=== PATIENT | male | born 1950 | race Caucasian/White ===

== ENCOUNTER 2022-10-10 14:17 | Emergency (ER) | payer MEDICARE, MEDICAID, SELFPAY ==
--- NOTE | ~2022-10-10 | US_ITS ---
EXAMINATION: US VENOUS ULTRASOUND WITH DOPPLER LOWER EXTREMITY, BILATERAL CLINICAL INFORMATION: Pulmonary emboli COMPARISON: None TECHNIQUE: Ultrasound of the deep veins is performed from the hip to the calf with compression sonography and color and pulse Doppler assessment. Spectral analysis with color-flow imaging is performed. FINDINGS: RIGHT: There is normal venous compression and respiratory variation and augmented flow. The visualized common femoral vein, superficial femoral vein, profunda femoral vein, popliteal vein, and the trifurcation region shows no evidence of deep venous thrombosis. There is no significant popliteal fossa cyst. LEFT: There is normal venous compression and respiratory variation and augmented flow. The visualized common femoral vein, superficial femoral vein, profunda femoral vein, popliteal vein, and the trifurcation region shows no evidence of deep venous thrombosis. There is no significant popliteal fossa cyst. If the patient's symptoms persist, followup ultrasound in 5 days 7 days might be of value to exclude proximal propagation from a non-visualized calf vein. US/US venous duplex LE BI IMPRESSION: No DVT demonstrated in either lower extremity.
--- NOTE | ~2022-10-10 | XR_ITS ---
EXAMINATION: XR CHEST, 2 VIEWS CLINICAL INFORMATION: Chest pain. COMPARISON: 05/31/2018 TECHNIQUE: PA and lateral views of the chest were obtained. FINDINGS: Lungs are hyperexpanded though clear. Blunting of the left lateral costophrenic sulcus is unchanged as compared to prior and likely due to chronic pleural parenchymal scarring. Pleural effusion is less likely. No consolidation or pneumothorax. Cardiac and mediastinal contours are normal. Pulmonary vasculature is unremarkable. Trachea is midline. Mild degenerative disc disease in the thoracic spine. XR/XR chest 2V IMPRESSION: No acute pulmonary findings. Chronic pleural parenchymal scarring at the left lateral costophrenic sulcus.
--- NOTE | ~2022-10-10 | CT_ITS ---
EXAMINATION: CT ANGIOGRAM OF THE CHEST WITH AND WITHOUT CONTRAST (CT PULMONARY ANGIOGRAM FOR PE) CLINICAL INFORMATION: Reason for Exam CP, elevated D-dimer COMPARISON: None TECHNIQUE: Prior to contrast administration, noncontrast localization images were obtained. Subsequently, multidetector volumetric imaging was performed from the thoracic inlet to below the diaphragms following the administration of 65 mL Omnipaque 350 intravenous contrast. No contrast reaction reported Sagittal, coronal, and MIP oblique sagittal reformatted images were obtained on the CT workstation, uploaded to PACS, and reviewed. This CT examination was performed using dose optimization techniques as appropriate, variously including the following: *Automated exposure control *Adjustment of mA and/or kV according to patient size (this includes techniques or standardized protocols for targeted exams where dose is matched to indication/reason for exam; i.e. extremities or head) *Use of iterative reconstruction technique Total exam dose-length product 242 mGy-cm FINDINGS: QUALITY OF STUDY/CONTRAST BOLUS: Satisfactory. PULMONARY ARTERIES: There is a distal segmental/subsegmental pulmonary embolus in the anterior segment left upper lobe. No additional segmental or central pulmonary emboli. Nondilated central pulmonary trunk. THORACIC AORTA: No aneurysm or dissection. LUNG: No airspace consolidation. Curvilinear pleural parenchymal scarring in the left lung base. Small calcified granulomas in the left upper and left lower lobes. No suspicious appearing pulmonary nodules. Central airways are clear. PLEURA: Left basilar pleural thickening. No pleural effusion or pneumothorax. MEDIASTINUM: Normal heart size. No pericardial effusion. No appreciable coronary artery vascular calcifications. No hilar or mediastinal lymphadenopathy. No evidence of septal bowing or right heart strain. CORONARY ARTERY CALCIFICATION: None visualized on this study. CHEST WALL/AXILLA: No axillary or internal mammary lymphadenopathy. OSSEOUS STRUCTURES: No acute or suspicious osseous abnormality. Mild multilevel degenerative disc disease in the lower cervical and thoracic spine. UPPER ABDOMEN: Unremarkable. No reflux of contrast into the hepatic veins to suggest elevated right heart pressures. CT/CT angio chest PE protocol IMPRESSION: 1. Small distal segmental/subsegmental pulmonary embolus in the anterior segment left upper lobe. No additional pulmonary emboli. 2. No airspace consolidation or effusions. VTE: positive This critical result was discussed with Dr. Cooper at 6:49 PM on 10/10/2022 and it was ascertained that the content and urgency of the report was understood at the time of direct communication.
[2022-10-10 14:50] VITALS: BP 143/101; PULSE 126; RESP 18; TEMP 36.8; O2SAT 97; BMI 19.5
--- NOTE | 2022-10-10 14:51 | ED.CHESTPAIN ---
HPI - Chest Pain General Chief Complaint: Chest Pain <OMAR Newell - Last Filed: 10/10/22 14:59> Stated Complaint: CP, chest pressure x 3 days <OMAR Newell - Last Filed: 10/10/22 14:59> Time Seen by Provider: 10/10/22 15:31 <OMAR Newell - Last Filed: 10/10/22 14:59> Source: patient and family <Luzma Cooper MD - Last Filed: 10/10/22 19:55> Mode of arrival: ambulatory <Luzma Cooper MD - Last Filed: 10/10/22 19:55> Limitations: no limitations <Luzma Cooper MD - Last Filed: 10/10/22 19:55> History of Present Illness HPI narrative: 72-year-old male came in for evaluation of chest pain. Mid chest constant pain localized to the mid chest with no radiation, started 3 days ago pain is constant and moderate 5/10 described it as pressure pain and sharp pain to the mid chest, no SOB a cessation, no fever, no chills, been coughing clear phlegm for the past 3-4 weeks, no sick contacts, recent travel. Patient recently diagnosed with prostate cancer patient slightly feel sad and depressed about it with no SI or HI or hallucination. Patient declined recent travel, no lower extremity swelling or tenderness. <Luzma Cooper MD - Last Filed: 10/10/22 19:55> Related Data Home Medications: Previous Rx's Medication Instructions Recorded apixaban 5 mg (74 tabs) tablets in 5 mg PO BID #74 ea 10/10/22 a dose pack (Eliquis DVT-PE Treat 30D Start) <OMAR Newell - Last Filed: 10/10/22 14:59> Allergies/Adverse Reactions: Allergies Allergy/AdvReac Type Severity Reaction Status Date / Time bee pollen [Bee Stings] Allergy Unknown ANAPHYLAXIS Verified 10/10/22 14:54 <OMAR Newell - Last Filed: 10/10/22 14:59> Review of Systems Review of Systems: All other systems are reviewed and are negative Constitutional: Reports as per HPI and Reports no additional constitutional complaints Eyes: Reports as per HPI and Reports no additional eye complaints Reports system reviewed and no additional complaints, except as documented Cardiovascular: Reports as per HPI and Reports no additional cardiovascular complaints Respiratory: Reports as per HPI and Reports no additional respiratory complaints Gastrointestinal: Reports as per HPI and Reports no additional gastrointestinal complaints Genitourinary: Reports no additional female genitourinary complaints Musculoskeletal: Reports no additional musculoskeletal complaints Skin/Breast: Reports system reviewed and no additional complaints, except as docu Psychiatric: Reports no additional psychiatric complaints Endocrine: Reports no additional endocrine complaints Hematologic/Lymphatic: Reports no additional hematologic/lymphatic complaints Allergic/Immunologic: Reports no additional allergic/immunologic complaints Reports system reviewed and no additional complaints, except as documented and Reports Abnormal speech present <Luzma Cooper MD - Last Filed: 10/10/22 19:55> [facility] Social History Social History: Social History Smoked in Last 30 Days: No Advance Directives: No Advance Directives Information Provided: No <OMAR Newell - Last Filed: 10/10/22 14:59> Physical Exam Vital Signs: Vital Signs: Last Vital Signs Temp 98.4 F 10/10/22 16:53 Pulse 84 10/10/22 16:53 Resp 21 H 10/10/22 16:53 BP 144/89 H 10/10/22 16:53 Pulse Ox 98 10/10/22 16:53 O2 Del Method 10/10/22 16:53 BMI result Body Mass Index 19.5 <OMAR Newell - Last Filed: 10/10/22 14:59> Vital Signs: Last Vital Signs Temp 98.4 F 10/10/22 16:53 Pulse 84 10/10/22 16:53 Resp 21 H 10/10/22 16:53 BP 144/89 H 10/10/22 16:53 Pulse Ox 98 10/10/22 16:53 O2 Del Method 10/10/22 16:53 BMI result Body Mass Index 19.5 Vital signs have been reviewed as appeared to be correct. Blood pressure elevated. Tachycardia. Respiration rate normal. Temperature normal. Oxygen saturation normal. <Luzma Cooper MD - Last Filed: 10/10/22 19:55> Appearance: Alert. Oriented X3. No acute distress. Head: Normal external exam. Normocephalic. Atraumatic. No Davison signs noted. No raccoon eyes noted Eyes: PERRLA. EOMI. Conjunctiva and sclera normal. Eyelids normal. ENT: TM's Normal. Pharynx normal. Uvula midline. Moist mucous membranes. No trismus noted. No drooling noted. No muffled voice noted. Neck: Normal inspection. Neck supple. FROM. No adenopathy. Thyroid Normal. No meningeal signs. No neck mass noted. CVS: Normal heart rate and rhythm. Heart sound normal. No murmurs noted. Pulses normal throughout. Respiratory: No respiratory distress. Painless inspiration. Breath sounds normal. No wheezes/rales/rhonchi noted. Chest nontender. No accessory muscle usage noted or decreased air movement noted. Abdomen: Soft and nontender. Bowel sounds normal in all 4 quadrants. No distention noted. No organomegaly noted. No visible injury noted. Back: No CVA tenderness. Full range of motion noted. Skin: Skin warm and dry. Normal skin color. Normal skin turgor. No rashes/lesions/lacerations noted. Extremities: No lower extremity edema. Extremities exhibit normal range of motion. Extremities nontender. Neuro: Oriented X 3. Cranial nerve exam: II-XII are grossly intact No motor deficit. No sensory deficit. Reflexes normal. <Luzma Cooper MD - Last Filed: 10/10/22 19:55> Course Course Course Narrative: RME - 72 yo male with history of recently diagnosed prostate cancer who presents to the ER for evaluation of central, nonradiating constant chest pain and pressure for the last 3 days that started when he was doing nothing. No SOB, diaphoresis, admits to mild nausea and coughing w/ phlegm for the last 1 week. Tachy to 120-130s, satting well. Will get labs, CXR, EKG, coags and swabs. <OMAR Newell - Last Filed: 10/10/22 14:59> Reevaluation(s) Reevaluation #1: Recently diagnosed with prostate cancer, otherwise no recent travel or prolonged immobilization, no lower extremity swelling or tenderness, CTA showed patient has small pulmonary segmental embolism to the right lung. Patient vital sign is stable, lower extremities ultrasound shows no DVT, no hypoxia, patient declined hospitalization and rather to be treated as an outpatient. <Luzma Cooper MD - Last Filed: 10/10/22 19:55> Time: 19:51 <Luzma Cooper MD - Last Filed: 10/10/22 19:55> Medications Administered Discontinued Medications Generic Name Dose Route Start Last Admin Trade Name Freq PRN Reason Stop Dose Admin Iohexol 100 ml 10/10/22 17:45 10/10/22 17:45 Iohexol 350 Mg/Ml 100 Ml Infus..Btl IV 10/10/22 17:46 65 ml ONCE ONE Administration Ondansetron HCl 4 mg 10/10/22 18:22 10/10/22 18:30 Ondansetron Hcl 4 Mg/2 Ml Vial IVPUSH 10/10/22 18:23 4 mg ONCE ONE Administration <OMAR Newell - Last Filed: 10/10/22 14:59> Medications Administered Discontinued Medications Generic Name Dose Route Start Last Admin Trade Name Freq PRN Reason Stop Dose Admin Iohexol 100 ml 10/10/22 17:45 10/10/22 17:45 Iohexol 350 Mg/Ml 100 Ml Infus..Btl IV 10/10/22 17:46 65 ml ONCE ONE Administration Ondansetron HCl 4 mg 10/10/22 18:22 10/10/22 18:30 Ondansetron Hcl 4 Mg/2 Ml Vial IVPUSH 10/10/22 18:23 4 mg ONCE ONE Administration <Luzma Cooper MD - Last Filed: 10/10/22 19:55> Medical Decision Making Differential Diagnosis Differential Diagnoses: The differential diagnosis associated with the presentation includes (ACS, pneumonia, pneumothorax, pulmonary embolism, aortic dissection.) <Luzma Cooper MD - Last Filed: 10/10/22 19:55> Lab Data MDM Lab Attestation statement: I reviewed the patient's lab results. <Luzma Cooper MD - Last Filed: 10/10/22 19:55> Result Diagrams: 10/10/22 15:44 10/10/22 15:44 <OMAR Newell - Last Filed: 10/10/22 14:59> Labs: Lab Results 10/10/22 10/10/22 10/10/22 Range/Units 15:40 15:44 15:44 WBC 7.3 (4.8-10.8) X10*3/uL RBC 4.07 L (4.60-5.80) X10*6/uL Hgb 13.1 L (14.0-18.0) g/dl Hct 38.8 L (42.0-52.0) % MCV 95.3 (80.0-98.0) fL MCH 32.2 (27.0-33.0) pg MCHC 33.8 (31.0-36.0) g/dl RDW 12.3 (11.0-16.0) % Plt Count 254 (160-400) X10*3/uL MPV 9.7 (9.4-12.4) fL Immature Gran % (Auto) 0.4 (0.0-0.4) % Neut % (Auto) 71.5 (45-73) % Lymph % (Auto) 17.9 L (20-40) % [place] % (Auto) 6.7 (2-11) % Eos % (Auto) 2.7 (0-4) % Baso % (Auto) 0.8 (0-2) % Lymph # (Auto) 1.3 (1.2-4.9) X10*3/uL [place] # (Auto) 0.5 (0.1-1.2) X10*3/uL Eos # (Auto) 0.2 (0.0-0.4) X10*3/uL Baso # (Auto) 0.1 (0.0-0.2) X10*3/uL Abs Immat Gran (auto) 0.03 (0.00-0.03) X10*3/uL Absolute Neuts (auto) 5.2 (2.0-8.3) x10*3/uL Absolute Nucleated RBC 0.000 (0.0-0.012) X10*3/uL Nucleated RBC % (auto) 0.0 (0.0-0.2) /100WBC PT (10.0-13.1) SEC INR (0.9-1.1) APTT (26.0-36.4) SEC D-Dimer High Sensitivty 284 NG/ML Sodium 138 (135-145) mmol/L Potassium 4.3 (3.3-5.1) mmol/L Chloride 104 (96-108) mmol/L Carbon Dioxide 26 (22-29) mmol/L Anion Gap 12 (12-20) BUN 16 (9-16) mg/dL Creatinine 0.84 (0.5-1.4) mg/dL Estim Creat Clear Calc 72.4 Estimated GFR > 60 Random Glucose 111 (60-115) mg/dL Calcium 9.2 (8.4-10.2) mg/dL Magnesium 2.1 (1.6-2.6) mg/dL Total Bilirubin 0.4 (0.0-1.0) mg/dL Direct Bilirubin < 0.2 (0.0-0.5) mg/dL AST 27 (5-37) U/L ALT 19 (0-40) U/L Alkaline Phosphatase 74 (39-117) U/L Troponin I High Sens (<3.5-35.0) ng/L B-Natriuretic Peptide (<100) pg/mL Total Protein 6.2 L (6.5-8.0) g/dL Albumin 3.9 (3.5-5.0) g/dL Urine Color Urine Appearance Urine pH (5.0-9.0) Ur Specific [place] (1.005-1.025) Urine Protein (Neg-Trace) mg/dL Urine Glucose (UA) (Negative) mg/dL Urine Ketones (Negative) mg/dL Urine Blood (Negative) Urine Nitrite (Negative) Ur Leukocyte Esterase (Negative) COVID-19 (DOV) (Negative) COVID-19 Clin Com Influenza Type A (TRINITY) (Negative) Influenza Type B (TRINITY) (Negative) Influenza A & B Note 10/10/22 10/10/22 10/10/22 Range/Units 15:44 15:44 15:44 WBC (4.8-10.8) X10*3/uL RBC (4.60-5.80) X10*6/uL Hgb (14.0-18.0) g/dl Hct (42.0-52.0) % MCV (80.0-98.0) fL MCH (27.0-33.0) pg MCHC (31.0-36.0) g/dl RDW (11.0-16.0) % Plt Count (160-400) X10*3/uL MPV (9.4-12.4) fL Immature Gran % (Auto) (0.0-0.4) % Neut % (Auto) (45-73) % Lymph % (Auto) (20-40) % [place] % (Auto) (2-11) % Eos % (Auto) (0-4) % Baso % (Auto) (0-2) % Lymph # (Auto) (1.2-4.9) X10*3/uL [place] # (Auto) (0.1-1.2) X10*3/uL Eos # (Auto) (0.0-0.4) X10*3/uL Baso # (Auto) (0.0-0.2) X10*3/uL Abs Immat Gran (auto) (0.00-0.03) X10*3/uL Absolute Neuts (auto) (2.0-8.3) x10*3/uL Absolute Nucleated RBC (0.0-0.012) X10*3/uL Nucleated RBC % (auto) (0.0-0.2) /100WBC PT 11.6 (10.0-13.1) SEC INR 1.0 (0.9-1.1) APTT 31.5 (26.0-36.4) SEC D-Dimer High Sensitivty NG/ML Sodium (135-145) mmol/L Potassium (3.3-5.1) mmol/L Chloride (96-108) mmol/L Carbon Dioxide (22-29) mmol/L Anion Gap (12-20) BUN (9-16) mg/dL Creatinine (0.5-1.4) mg/dL Estim Creat Clear Calc Estimated GFR Random Glucose (60-115) mg/dL Calcium (8.4-10.2) mg/dL Magnesium (1.6-2.6) mg/dL Total Bilirubin (0.0-1.0) mg/dL Direct Bilirubin (0.0-0.5) mg/dL AST (5-37) U/L ALT (0-40) U/L Alkaline Phosphatase (39-117) U/L Troponin I High Sens 5.2 (<3.5-35.0) ng/L B-Natriuretic Peptide (<100) pg/mL Total Protein (6.5-8.0) g/dL Albumin (3.5-5.0) g/dL Urine Color Urine Appearance Urine pH (5.0-9.0) Ur Specific [place] (1.005-1.025) Urine Protein (Neg-Trace) mg/dL Urine Glucose (UA) (Negative) mg/dL Urine Ketones (Negative) mg/dL Urine Blood (Negative) Urine Nitrite (Negative) Ur Leukocyte Esterase (Negative) COVID-19 (DOV) Negative (Negative) COVID-19 Clin Com See Note Influenza Type A (TRINITY) (Negative) Influenza Type B (TRINITY) (Negative) Influenza A & B Note 10/10/22 10/10/22 10/10/22 Range/Units 15:44 15:44 16:57 WBC (4.8-10.8) X10*3/uL RBC (4.60-5.80) X10*6/uL Hgb (14.0-18.0) g/dl Hct (42.0-52.0) % MCV (80.0-98.0) fL MCH (27.0-33.0) pg MCHC (31.0-36.0) g/dl RDW (11.0-16.0) % Plt Count (160-400) X10*3/uL MPV (9.4-12.4) fL Immature Gran % (Auto) (0.0-0.4) % Neut % (Auto) (45-73) % Lymph % (Auto) (20-40) % [place] % (Auto) (2-11) % Eos % (Auto) (0-4) % Baso % (Auto) (0-2) % Lymph # (Auto) (1.2-4.9) X10*3/uL [place] # (Auto) (0.1-1.2) X10*3/uL Eos # (Auto) (0.0-0.4) X10*3/uL Baso # (Auto) (0.0-0.2) X10*3/uL Abs Immat Gran (auto) (0.00-0.03) X10*3/uL Absolute Neuts (auto) (2.0-8.3) x10*3/uL Absolute Nucleated RBC (0.0-0.012) X10*3/uL Nucleated RBC % (auto) (0.0-0.2) /100WBC PT (10.0-13.1) SEC INR (0.9-1.1) APTT (26.0-36.4) SEC D-Dimer High Sensitivty NG/ML Sodium (135-145) mmol/L Potassium (3.3-5.1) mmol/L Chloride (96-108) mmol/L Carbon Dioxide (22-29) mmol/L Anion Gap (12-20) BUN (9-16) mg/dL Creatinine (0.5-1.4) mg/dL Estim Creat Clear Calc Estimated GFR Random Glucose (60-115) mg/dL Calcium (8.4-10.2) mg/dL Magnesium (1.6-2.6) mg/dL Total Bilirubin (0.0-1.0) mg/dL Direct Bilirubin (0.0-0.5) mg/dL AST (5-37) U/L ALT (0-40) U/L Alkaline Phosphatase (39-117) U/L Troponin I High Sens (<3.5-35.0) ng/L B-Natriuretic Peptide 50 (<100) pg/mL Total Protein (6.5-8.0) g/dL Albumin (3.5-5.0) g/dL Urine Color Yellow Urine Appearance Clear Urine pH 6.0 (5.0-9.0) Ur Specific [place] <= 1.005 (1.005-1.025) Urine Protein Negative (Neg-Trace) mg/dL Urine Glucose (UA) Negative (Negative) mg/dL Urine Ketones Negative (Negative) mg/dL Urine Blood Negative (Negative) Urine Nitrite Negative (Negative) Ur Leukocyte Esterase Negative (Negative) COVID-19 (DOV) (Negative) COVID-19 Clin Com Influenza Type A (TRINITY) Negative (Negative) Influenza Type B (TRINITY) Negative (Negative) Influenza A & B Note See Note <OMAR Newell - Last Filed: 10/10/22 14:59> Lab Results 10/10/22 10/10/22 10/10/22 Range/Units 15:40 15:44 15:44 WBC 7.3 (4.8-10.8) X10*3/uL RBC 4.07 L (4.60-5.80) X10*6/uL Hgb 13.1 L (14.0-18.0) g/dl Hct 38.8 L (42.0-52.0) % MCV 95.3 (80.0-98.0) fL MCH 32.2 (27.0-33.0) pg MCHC 33.8 (31.0-36.0) g/dl RDW 12.3 (11.0-16.0) % Plt Count 254 (160-400) X10*3/uL MPV 9.7 (9.4-12.4) fL Immature Gran % (Auto) 0.4 (0.0-0.4) % Neut % (Auto) 71.5 (45-73) % Lymph % (Auto) 17.9 L (20-40) % [place] % (Auto) 6.7 (2-11) % Eos % (Auto) 2.7 (0-4) % Baso % (Auto) 0.8 (0-2) % Lymph # (Auto) 1.3 (1.2-4.9) X10*3/uL [place] # (Auto) 0.5 (0.1-1.2) X10*3/uL Eos # (Auto) 0.2 (0.0-0.4) X10*3/uL Baso # (Auto) 0.1 (0.0-0.2) X10*3/uL Abs Immat Gran (auto) 0.03 (0.00-0.03) X10*3/uL Absolute Neuts (auto) 5.2 (2.0-8.3) x10*3/uL Absolute Nucleated RBC 0.000 (0.0-0.012) X10*3/uL Nucleated RBC % (auto) 0.0 (0.0-0.2) /100WBC PT (10.0-13.1) SEC INR (0.9-1.1) APTT (26.0-36.4) SEC D-Dimer High Sensitivty 284 NG/ML Sodium 138 (135-145) mmol/L Potassium 4.3 (3.3-5.1) mmol/L Chloride 104 (96-108) mmol/L Carbon Dioxide 26 (22-29) mmol/L Anion Gap 12 (12-20) BUN 16 (9-16) mg/dL Creatinine 0.84 (0.5-1.4) mg/dL Estim Creat Clear Calc 72.4 Estimated GFR > 60 Random Glucose 111 (60-115) mg/dL Calcium 9.2 (8.4-10.2) mg/dL Magnesium 2.1 (1.6-2.6) mg/dL Total Bilirubin 0.4 (0.0-1.0) mg/dL Direct Bilirubin < 0.2 (0.0-0.5) mg/dL AST 27 (5-37) U/L ALT 19 (0-40) U/L Alkaline Phosphatase 74 (39-117) U/L Troponin I High Sens (<3.5-35.0) ng/L B-Natriuretic Peptide (<100) pg/mL Total Protein 6.2 L (6.5-8.0) g/dL Albumin 3.9 (3.5-5.0) g/dL Urine Color Urine Appearance Urine pH (5.0-9.0) Ur Specific [place] (1.005-1.025) Urine Protein (Neg-Trace) mg/dL Urine Glucose (UA) (Negative) mg/dL Urine Ketones (Negative) mg/dL Urine Blood (Negative) Urine Nitrite (Negative) Ur Leukocyte Esterase (Negative) COVID-19 (DOV) (Negative) COVID-19 Clin Com Influenza Type A (TRINITY) (Negative) Influenza Type B (TRINITY) (Negative) Influenza A & B Note 10/10/22 10/10/22 10/10/22 Range/Units 15:44 15:44 15:44 WBC (4.8-10.8) X10*3/uL RBC (4.60-5.80) X10*6/uL Hgb (14.0-18.0) g/dl Hct (42.0-52.0) % MCV (80.0-98.0) fL MCH (27.0-33.0) pg MCHC (31.0-36.0) g/dl RDW (11.0-16.0) % Plt Count (160-400) X10*3/uL MPV (9.4-12.4) fL Immature Gran % (Auto) (0.0-0.4) % Neut % (Auto) (45-73) % Lymph % (Auto) (20-40) % [place] % (Auto) (2-11) % Eos % (Auto) (0-4) % Baso % (Auto) (0-2) % Lymph # (Auto) (1.2-4.9) X10*3/uL [place] # (Auto) (0.1-1.2) X10*3/uL Eos # (Auto) (0.0-0.4) X10*3/uL Baso # (Auto) (0.0-0.2) X10*3/uL Abs Immat Gran (auto) (0.00-0.03) X10*3/uL Absolute Neuts (auto) (2.0-8.3) x10*3/uL Absolute Nucleated RBC (0.0-0.012) X10*3/uL Nucleated RBC % (auto) (0.0-0.2) /100WBC PT 11.6 (10.0-13.1) SEC INR 1.0 (0.9-1.1) APTT 31.5 (26.0-36.4) SEC D-Dimer High Sensitivty NG/ML Sodium (135-145) mmol/L Potassium (3.3-5.1) mmol/L Chloride (96-108) mmol/L Carbon Dioxide (22-29) mmol/L Anion Gap (12-20) BUN (9-16) mg/dL Creatinine (0.5-1.4) mg/dL Estim Creat Clear Calc Estimated GFR Random Glucose (60-115) mg/dL Calcium (8.4-10.2) mg/dL Magnesium (1.6-2.6) mg/dL Total Bilirubin (0.0-1.0) mg/dL Direct Bilirubin (0.0-0.5) mg/dL AST (5-37) U/L ALT (0-40) U/L Alkaline Phosphatase (39-117) U/L Troponin I High Sens 5.2 (<3.5-35.0) ng/L B-Natriuretic Peptide (<100) pg/mL Total Protein (6.5-8.0) g/dL Albumin (3.5-5.0) g/dL Urine Color Urine Appearance Urine pH (5.0-9.0) Ur Specific [place] (1.005-1.025) Urine Protein (Neg-Trace) mg/dL Urine Glucose (UA) (Negative) mg/dL Urine Ketones (Negative) mg/dL Urine Blood (Negative) Urine Nitrite (Negative) Ur Leukocyte Esterase (Negative) COVID-19 (DOV) Negative (Negative) COVID-19 Clin Com See Note Influenza Type A (TRINITY) (Negative) Influenza Type B (TRINITY) (Negative) Influenza A & B Note 10/10/22 10/10/22 10/10/22 Range/Units 15:44 15:44 16:57 WBC (4.8-10.8) X10*3/uL RBC (4.60-5.80) X10*6/uL Hgb (14.0-18.0) g/dl Hct (42.0-52.0) % MCV (80.0-98.0) fL MCH (27.0-33.0) pg MCHC (31.0-36.0) g/dl RDW (11.0-16.0) % Plt Count (160-400) X10*3/uL MPV (9.4-12.4) fL Immature Gran % (Auto) (0.0-0.4) % Neut % (Auto) (45-73) % Lymph % (Auto) (20-40) % [place] % (Auto) (2-11) % Eos % (Auto) (0-4) % Baso % (Auto) (0-2) % Lymph # (Auto) (1.2-4.9) X10*3/uL [place] # (Auto) (0.1-1.2) X10*3/uL Eos # (Auto) (0.0-0.4) X10*3/uL Baso # (Auto) (0.0-0.2) X10*3/uL Abs Immat Gran (auto) (0.00-0.03) X10*3/uL Absolute Neuts (auto) (2.0-8.3) x10*3/uL Absolute Nucleated RBC (0.0-0.012) X10*3/uL Nucleated RBC % (auto) (0.0-0.2) /100WBC PT (10.0-13.1) SEC INR (0.9-1.1) APTT (26.0-36.4) SEC D-Dimer High Sensitivty NG/ML Sodium (135-145) mmol/L Potassium (3.3-5.1) mmol/L Chloride (96-108) mmol/L Carbon Dioxide (22-29) mmol/L Anion Gap (12-20) BUN (9-16) mg/dL Creatinine (0.5-1.4) mg/dL Estim Creat Clear Calc Estimated GFR Random Glucose (60-115) mg/dL Calcium (8.4-10.2) mg/dL Magnesium (1.6-2.6) mg/dL Total Bilirubin (0.0-1.0) mg/dL Direct Bilirubin (0.0-0.5) mg/dL AST (5-37) U/L ALT (0-40) U/L Alkaline Phosphatase (39-117) U/L Troponin I High Sens (<3.5-35.0) ng/L B-Natriuretic Peptide 50 (<100) pg/mL Total Protein (6.5-8.0) g/dL Albumin (3.5-5.0) g/dL Urine Color Yellow Urine Appearance Clear Urine pH 6.0 (5.0-9.0) Ur Specific [place] <= 1.005 (1.005-1.025) Urine Protein Negative (Neg-Trace) mg/dL Urine Glucose (UA) Negative (Negative) mg/dL Urine Ketones Negative (Negative) mg/dL Urine Blood Negative (Negative) Urine Nitrite Negative (Negative) Ur Leukocyte Esterase Negative (Negative) COVID-19 (DOV) (Negative) COVID-19 Clin Com Influenza Type A (TRINITY) Negative (Negative) Influenza Type B (TRINITY) Negative (Negative) Influenza A & B Note See Note <Luzma Cooper MD - Last Filed: 10/10/22 19:55> Independent Interpretation I performed an independent interpretation of an: EKG (Sinus tachycardia at 120 beats per minute, normal axis deviation, normal intervals, no ST-T changes.), Ultrasound (Bilateral venous ultrasound: No acute DVT.) and CT Scan (Angiogram of chest.. Small distal segmental/subsegmental pulmonary embolus in the anterior segment left upper lobe. No additional pulmonary emboli. 2. No airspace consolidation or effusions.) <Luzma Cooper MD - Last Filed: 10/10/22 19:55> Radiology Impression Discussion of test interpretation with radiology: I have reviewed the radiologist's reading. <Luzma Cooper MD - Last Filed: 10/10/22 19:55> Discharge Plan Discharge Clinical Impression: Pulmonary emboli <OMAR Newell - Last Filed: 10/10/22 14:59> Patient Disposition: Home, Self-Care <OMAR Newell - Last Filed: 10/10/22 14:59> Instructions: Blood Thinners (ED) <OMAR Newell - Last Filed: 10/10/22 14:59> Prescriptions: New Eliquis DVT-PE Treat 30D Start 5 mg (74 tabs) tablets,dose pack 5 mg PO BID Qty: 74 0RF <OMAR Newell - Last Filed: 10/10/22 14:59> Referrals: Murray Hall MD [Primary Care Provider] - <OMAR Newell - Last Filed: 10/10/22 14:59>
--- NOTE | 2022-10-10 14:52 | ECG_ITS ---
Test Reason : CHEST PAIN Blood Pressure : / mmHG Vent. Rate : 120 BPM Atrial Rate : 120 BPM P-R Int : 138 ms QRS Dur : 086 ms QT Int : 316 ms P-R-T Axes : 055 065 025 degrees QTc Int : 446 ms Sinus tachycardia Otherwise normal ECG When compared with ECG of 31-MAY-2018 06:52, No significant change was found Referred By: Bekah Andrea Electronically Signed By:Leonardo Mcdonnell
[2022-10-10 15:53] LABS: MANUAL DIFF FLAG NO
[2022-10-10 15:54] LABS: Basophils Absolute Auto 0.1 X10*3/uL (0.0-0.2); Basophils Percent Auto 0.8 % (0-2); Eosinophils Absolute Auto 0.2 X10*3/uL (0.0-0.4); Eosinophils Percent Auto 2.7 % (0-4); Hematocrit 38.8 % (42.0-52.0); Hemoglobin 13.1 g/dl (14.0-18.0); Imm Gran Abs Auto 0.03 X10*3/uL (0.00-0.03); Imm Gran Pct Auto 0.4 % (0.0-0.4); Lymphocytes Absolute Auto 1.3 X10*3/uL (1.2-4.9); Lymphocytes Percent Auto 17.9 % (20-40); Mean Corpuscular HGB Conc 33.8 g/dl (31.0-36.0); Mean Corpuscular Hemoglobin 32.2 pg (27.0-33.0); Mean Corpuscular Volume 95.3 fL (80.0-98.0); Mean Platelet Volume 9.7 fL (9.4-12.4); Monocytes Absolute Auto 0.5 X10*3/uL (0.1-1.2); Monocytes Percent Auto 6.7 % (2-11); Neutrophils Absolute Auto 5.2 x10*3/uL (2.0-8.3); Neutrophils Percent Auto 71.5 % (45-73); Platelet Count 254 X10*3/uL (160-400); Red Blood Count 4.07 X10*6/uL (4.60-5.80); Red Cell Distribution Width 12.3 % (11.0-16.0); White Blood Count 7.3 X10*3/uL (4.8-10.8)
[2022-10-10 16:03] LABS: Prothrombin Time 11.6 SEC (10.0-13.1)
[2022-10-10 16:06] LABS: Partial Thromboplastin Time 31.5 SEC (26.0-36.4)
[2022-10-10 16:13] LABS: COVID-19 Test Negative (Negative); IDNOW Serial# 16C4AD1C
[2022-10-10 16:14] LABS: B Type Natriuretic Peptide 50 pg/mL (<100)
[2022-10-10 16:15] LABS: IDNOW Serial# BCCEAD1C; Influenza A Negative (Negative); Influenza B2 Negative (Negative); Troponin-I High Sensitivity 5.2 ng/L (<3.5-35.0)
[2022-10-10 16:22] LABS: D Dimer High Sensitivity 284 NG/ML
[2022-10-10 16:24] LABS: Alanine Aminotransferase 19 U/L (0-40); Albumin Level 3.9 g/dL (3.5-5.0); Alkaline Phosphatase 74 U/L (39-117); Anion Gap 12 (12-20); Aspartate Amino Transferase 27 U/L (5-37); Bilirubin Direct < 0.2 mg/dL (0.0-0.5); Bilirubin Total 0.4 mg/dL (0.0-1.0); Blood Urea Nitrogen 16 mg/dL (9-16); Calcium 9.2 mg/dL (8.4-10.2); Carbon Dioxide 26 mmol/L (22-29); Chloride 104 mmol/L (96-108); Creatinine Clr Calc Pharmacy 72.4; Estimated Glomerular Filt Rate > 60; Glucose Random 111 mg/dL (60-115); Magnesium 2.1 mg/dL (1.6-2.6); Potassium 4.3 mmol/L (3.3-5.1); Sodium 138 mmol/L (135-145); Total Protein 6.2 g/dL (6.5-8.0)
[2022-10-10 16:53] VITALS: BP 144/89; PULSE 84; RESP 21; TEMP 36.9; O2SAT 98
[2022-10-10 17:04] LABS: Appearance Urine Clear; Color Urine Yellow; Glucose Urine UA Negative (Negative); Leukocyte Esterase Urine Negative (Negative); Nitrite Urine Negative (Negative); Specific Gravity - Urine <= 1.005 (1.005-1.025); Urine Blood Negative (Negative); Urine Ketones Negative (Negative); Urine Protein Negative (Neg-Trace)
[2022-10-10] MEDS: iohexoL 350 MG/ML 100 ML INFUS..BTL IV (17:45)
[2022-10-10] MEDS: ondansetron HCL 4 MG/2 ML VIAL IVPUSH (18:30)
[2022-10-10 20:00] VITALS: BP 132/74; PULSE 84; RESP 18; O2SAT 98
[2022-10-10] MEDS: Apixaban 5 MG TABLET 10 MG PO (20:06)
== END 2022-10-11 06:42 | disposition home or self-care (01) ==
PROVIDERS: Physician Assistant; Emergency Provider Emergency Medicine; PCP Internal Medicine
DX: I26.99 Other pulmonary embolism without acute cor pulmonale (principal); R07.89 Other chest pain; R06.02 Shortness of breath; R60.0 Localized edema; Z20.822 Contact with and (suspected) exposure to COVID-19; Z20.828 Contact with and (suspected) exposure to other viral communicable diseases; Z79.899 Other long term (current) drug therapy
CPT/HCPCS: 36415; 71046; 71275; 80048; 80076; 81003; 83735; 83880; 84484; 85025; 85379; 85610; 85730; 87502; 87635; 93005; 93970; 96374; 99284; 99285; J2405; Q9967

== ENCOUNTER 2025-05-11 09:33 | Emergency (ER) | payer MEDICARE, SELFPAY ==
--- NOTE | ~2025-05-11 | XR_ITS ---
EXAMINATION: XR CHEST CLINICAL INFORMATION: cough COMPARISON: October 10, 2022. TECHNIQUE: 2 views of the chest were obtained. FINDINGS: Hyperinflated lungs. Pulmonary reticular pattern. Blunting of the costophrenic angles bilaterally. Mild prominence of the interstitial markings in the right lung. No pneumothorax. Cardiomediastinal silhouette size is normal. Multilevel thoracic and lumbar spondylosis. XR/XR chest 2V IMPRESSION: Consider COPD emphysematous type changes with the right-sided acute airspace disease and bilateral pleural effusions, moderate volume versus pleural thickening. Electronically signed by: Sukhjinder Brower MD 05/11/2025 10:22 AM EDT
--- NOTE | ~2025-05-11 | CT_ITS ---
EXAMINATION: CT CHEST WITHOUT CONTRAST CLINICAL INFORMATION: Abnormal weight loss. Cough. History of smoking. COMPARISON: None available. TECHNIQUE: Multidetector volumetric CT imaging of the chest was done. Axial MIP volume rendering provided. Sagittal and coronal reformatted images were obtained. This CT examination was performed using dose optimization techniques as appropriate, variously including the following: *Automated exposure control *Adjustment of mA and/or kV according to patient size (this includes techniques or standardized protocols for targeted exams where dose is matched to indication/reason for exam; i.e. extremities or head) *Use of iterative reconstruction technique DLP: 186 mGy centimeter. FINDINGS: TELEPHONE ANSWERER: Hyperinflated lungs. Pulmonary reticular nodular pattern. LUNGS: Multifocal tree-in-bud and patchy pulmonary groundglass attenuations involving mostly the right middle lung lobe, right lower lung lobe. Saccular bronchiectasis, right lower lung lobe. Layering secretions within the right mainstem bronchus into the bronchi was to the right lower lung lobe and right middle lung lobe. Similar findings in the left mainstem bronchus. Linear attenuation abnormalities in the lung bases right middle lung lobe. MEDIASTINUM: 2 cm subcarinal and precarinal lymphadenopathy. No pneumomediastinum. No pericardial effusion. No hemopericardium. No aneurysm, thoracic aorta. Calcified plaques in the inferior aspect of the thoracic aortic arch. Calcified plaques in the coronary arteries. The heart is not enlarged. No gross dominant nodules in the included thyroid gland. CORONARY ARTERY CALCIFICATION: Calcified plaques. PLEURA: Small trace left-sided pleural effusion. No pneumothorax. No hemothorax. No gross calcified pleural plaques. AXILLA: No lymphadenopathy. UPPER ABDOMEN: Abundant stool, splenic colonic flexure. Questionable diverticula. Punctate calcifications in the right kidney probable vascular. No gross hydronephrosis in either kidney. OSSEOUS STRUCTURES: Multilevel spondylosis without acute fracture or gross listhesis. Osteopenia versus osteoporosis. The sternum is intact. The included clavicles and scapula are intact. No gross acute rib fracture. CT/CT chest wo IV con IMPRESSION: Multifocal pneumonia, right middle lung lobe right lower lung lobe. Consider aspiration pneumonia. The possibility of mycobacterium pneumonia among other etiologies should be considered. Coronary artery disease. Saccular bronchiectasis, right lower lung lobe. Mediastinal lymphadenopathy likely reactive. Malignancy cannot be excluded. Fleischner guidelines were followed. Electronically signed by: Sukhjinder Brower MD 05/11/2025 12:00 PM EDT
[2025-05-11 09:48] VITALS: BP 122/78; PULSE 105; RESP 18; TEMP 36.8; O2SAT 95; BMI 17.3
--- NOTE | 2025-05-11 09:49 | ED_ITS ---
HPI - General Adult General Chief complaint: Upper Respiratory Symptoms Stated complaint: Cough, congestion Time Seen by Provider: 05/11/25 10:26 Source: patient and old records reviewed Mode of arrival: ambulatory Limitations: no limitations History of Present Illness ED Provider: JADEN WEST narrative: 74 yo male who is a poor historian tells me he has hx of prostate cancer that was treated at [facility] but hasn't seen then in a while. He notes he smoked for over 20 years but has not in several years. He has no PCP. He notes he is struggling after his fiancee . He comes in with c/o cough and yellowish sputum with dyspnea but no chest pain. He tells me the only med he takes is eliquis. He denies fevers. He states his HR is always up. He tells me no matter what we find he is not getting admitted and will leave. He admits to temporal wasting and weight loss but will not quantify. He swears he is taking his eliquis though I only see last fill in September. MD complaint: cough/dyspnea Onset (ago): week(s) (3) Location: chest Radiation: non-radiation Severity: moderate Relieving factors: none Exacerbating factors: other Associated symptoms: cough and other (weight loss) Treatments prior to arrival: none Related Data Previous Rx's ?Medication ?Instructions ?Recorded apixaban 5 mg (74 tabs) tablets in 5 mg PO BID #74 ea 10/10/22 a dose pack (Eliquis DVT-PE Treat 30D Start) amoxicillin 875 mg-potassium 1 tab PO BID #14 tabs 09/23 clavulanate 125 mg tablet doxycycline hyclate 100 mg capsule 100 mg PO BID 7 day s #14 caps 05/11/25 prednisone 20 mg tablet 40 mg (2 x 20 mg) PO DAILY 5 days 05/11/25 #10 tabs Allergies Allergy/AdvReac Type Severity Reaction Status Date / Time bee pollen (Bee Stings) Allergy Unknown ANAPHYLAXIS Verified 05/11/25 09:51 Review of Systems 2 Review of Systems: Constitutional : No Fever, No Chills ENT/Mouth : No Hoarseness, No sore throat, No Rhinorrhea Eyes: No Redness, No Discharge, No Vision Changes Cardiovascular : No Chest Pain, positive SOB, positive Dyspnea on Exertion, No Edema Respiratory : positive Cough, pos Sputum, positive Wheezing, Gastrointestinal : No Nausea, No Vomiting, No Diarrhea, No abdominal Pain Genitourinary : No Dysuria, No Hematuria Musculoskeletal : No joint pain, No Myalgias Skin : No rash Neuro : No Weakness, No Numbness, No Headache Psych : No anxiety, depression All other systems reviewed and are negative [facility] Past Medical History Attestation statement: The following information was validated with the patient. Source: old records reviewed Medical History (Updated 05/11/25 @ 12:43 by Madeleine Childs DO) Pulmonary embolus Prostate cancer Social History Social History Alcohol intake: current Alcohol intake frequency: a few times a week Alcohol type: beer Smoked in Last 30 Days: Yes Use of substances other than those prescribed or required for medical reasons: Yes Substance Use Type: Marijuana Substance Use Frequency: Occasionally Last Used Substance: Days (ago) Any prior treatment program specific to substance use: No Advance Directives: No Advance Directives Information Provided: Yes Do you have a plan to hurt others: No Plan Physical Exam ED Vital Signs: Vital Signs - 24 hr 05/11/25 09:48 05/11/25 10:50 05/11/25 11:07 Temperature 98.2 F 98.4 F Pulse Rate 105 H 104 H 54 Respiratory Rate 18 16 16 Blood Pressure 122/78 132/89 Pulse Oximetry 95 96 Oxygen Delivery Method Room Air Room Air BMI result Body Mass Index 17.3 Appearance: Alert. Oriented X3. No acute distress. Eyes: Pupils equal, round and reactive to light. ENT: Pharynx normal. Neck: Normal inspection. Neck supple. CVS: tachcyardic heart rate and rhythm. Pulses normal. Respiratory: No respiratory distress. Breath sounds diminished R lung Abdomen: Soft and nontender. Skin: Skin warm and dry. Normal skin color. Normal skin turgor. Extremities: No lower extremity edema. No calf ttp Neuro: Oriented X 3. No motor deficit. No sensory deficit. CN2-12 intact Course Course Course Narrative: Rapid medical examination performed in triage by Chiquis Payne PA-C. Patient is a 74 year old assigned male at presenting to the emergency department with a cough. Patient states that he has had a cough with phlegm production over the last 3 weeks. Detailed physical exam and review of systems are deferred to the director of primary. Imaging and swabs ordered. Patient placed back in the waiting room pending room availability and results. Reevaluation(s) Reevaluation #1: HR has decreased Medications Administered Discontinued Medications Generic Name Dose Route Start Last Admin Trade Name Cherelle PRN Reason Stop Dose Admin Albuterol Sulfate 4 puff 05/11/25 11:01 05/11/25 11:03 Albuterol Sulfate 90 Mcg 8 Gm Inhaler INHALE 05/11/25 11:02 4 puff ONCE ONE Administration Ceftriaxone Sodium 1 gm 05/11/25 10:47 05/11/25 11:15 Ceftriaxone Sodium 1 Gm Vial IVPUSH 05/11/25 10:48 1 gm ONCE ONE Administration Medical Decision Making Medical Decision Making [facility] Narrative: 74 yo male with PMH of possible COPD, PE on eliquis states he still has some at home, prior prostate cancer here with c/o cough, sputum but no chest pain/fevers. He has made it clear he is not staying in the hospital. I will obtain labs, CT scan, start antibiotics. Plan to have him leave AMA and start on abx, steroids. I advise he see his oncologist given the significant weight loss. Plan to hand him inhaler as well. Differential Diagnosis Differential Diagnoses: The differential diagnosis associated with the presentation includes COPD, mass, VTE, pneumonia Admission/Observation Consideration of admission/observation: Escalation of care including admission/observation considered refusing to stay he has no labored breathing he is asking for home health care I did notify our case management - unlikely to need VNA. he is aware of concerns about needing to see his oncologist as well as Lab Data [facility] Lab Attestation statement: I reviewed the patient's lab results. 05/11/25 11:03 05/11/25 11:03 Labs: Lab Results 05/11/25 05/11/25 Range/Units 09:58 11:03 WBC 6.7 (4.8-10.8) X10*3/uL RBC 4.07 L (4.60-5.80) X10*6/uL Hgb 13.0 L (14.0-18.0) g/dl Hct 38.1 L (42.0-52.0) % MCV 93.6 (80.0-98.0) fL MCH 31.9 (27.0-33.0) pg MCHC 34.1 (31.0-36.0) g/dl RDW 12.9 (11.0-16.0) % Plt Count 176 D (160-400) X10*3/uL MPV 10.3 (9.4-12.4) fL Immature Gran % (Auto) 0.4 (0.0-0.4) % Neut % (Auto) 79.3 H (45-73) % Lymph % (Auto) 10.8 L (20-40) % [place] % (Auto) 8.5 (2-11) % Eos % (Auto) 0.7 (0-4) % Baso % (Auto) 0.3 (0-2) % Lymph # (Auto) 0.7 L (1.2-4.9) X10*3/uL [place] # (Auto) 0.6 (0.1-1.2) X10*3/uL Eos # (Auto) 0.1 (0.0-0.4) X10*3/uL Baso # (Auto) 0.0 (0.0-0.2) X10*3/uL Abs Immat Gran (auto) 0.03 (0.00-0.03) X10*3/uL Absolute Neuts (auto) 5.3 (2.0-8.3) x10*3/uL Absolute Nucleated RBC 0.000 (0.0-0.012) X10*3/uL Nucleated RBC % (auto) 0.0 (0.0-0.2) /100WBC Sodium 136 (135-145) mmol/L Potassium 4.0 (3.3-5.1) mmol/L Chloride 100 (96-108) mmol/L Carbon Dioxide 29 (22-29) mmol/L Anion Gap 11 L (12-20) BUN 16 (9-16) mg/dL Creatinine 0.75 (0.5-1.4) mg/dL Estim Creat Clear Calc 69.8 Estimated GFR > 60 Random Glucose 102 (60-115) mg/dL Calcium 9.2 (8.4-10.2) mg/dL Magnesium 1.8 (1.6-2.6) mg/dL Total Bilirubin 0.8 (0.0-1.0) mg/dL Direct Bilirubin 0.3 (0.0-0.5) mg/dL AST 26 (5-37) U/L ALT 25 (0-40) U/L Alkaline Phosphatase 87 (39-117) U/L Troponin I High Sens 14.4 D (<3.5-35.0) ng/L B-Natriuretic Peptide 696 H (<100) pg/mL Total Protein 7.3 (6.5-8.0) g/dL Albumin 4.4 (3.5-5.0) g/dL Lipase 80 H (8-78) U/L Influenza Type A (PCR) NEGATIVE (Negative) Influenza Type B (PCR) NEGATIVE (Negative) RSV RNA Qual (PCR) NEGATIVE (Negative) SARS-CoV-2 RNA (RT-PCR) NEGATIVE (Negative) Independent Interpretation I performed an independent interpretation of an: EKG and CT Scan (multifocal pneumonia) Interpretation: Rate: 133 Rhythm: sinus tach [place]: normal Normal P waves. Normal [place]. Normal QRS complex. ST T wave : no PALLAVI, nonspecific ST T wave changes inf / lateral leads qTC: 520 prior studies: noted on prior The study has been interpreted contemporaneously by me. . Radiology Impression Discussion of test interpretation with radiology: I have reviewed the radiologist's reading. External Record Review External record reviewed: Outpatient record Prescription Management I considered prescription management with: Antibiotic Social Determinants Patient?s care significantly limited by Social Determinants of Health including: Problems related to primary support group Discharge Plan Discharge Clinical Impression: Pneumonia Qualifiers: Pneumonia type: due to unspecified organism Laterality: bilateral Lung location: unspecified part of lung Qualified Code(s): J18.9 - Pneumonia, unspecified organism Patient Disposition: Home, Self-Care Instructions: Pneumonia (ED) Additional Instructions: YOUR CT SCAN IS VERY ABNORMAL YOU HAVE PNEUMONIA WELL SIGNS OF INFECTION THAT COULD BE ATYPICAL IN Nature such as MYCOBACTERIUM YOU WERE OFFERED ADMISSION BUT DECLINED YOU NEED TO SEE YOUR ONCOLOGIST SOON POSSIBLE RETURN AT ANY TIME FOR ANY WORSENING SYMPTOMS OR CONCERNS CAN USE INHALER 2 PUFFS EVERY 4 HOURS NEEDED FOR WHEEZING/DYSPNEA. CT/CT chest wo IV con IMPRESSION: Multifocal pneumonia, right middle lung lobe right lower lung lobe. Consider aspiration pneumonia. The possibility of mycobacterium pneumonia among other etiologies should be considered. Coronary artery disease. Saccular bronchiectasis, right lower lung lobe. Mediastinal lymphadenopathy likely reactive. Malignancy cannot be excluded. Prescriptions: New doxycycline hyclate 100 mg capsule 100 mg PO BID 7 Days Qty: 14 0RF prednisone 20 mg tablet 40 mg PO DAILY 5 Days Qty: 10 0RF amoxicillin-pot clavulanate 875-125 mg tablet 1 tab PO BID Qty: 14 0RF No Action Eliquis DVT-PE Treat 30D Start 5 mg (74 tabs) tablets,dose pack 5 mg PO BID Qty: 74 0RF Print Language: Serbian
--- NOTE | 2025-05-11 10:48 | ECG_ITS ---
Test Reason : DYSPNEA Blood Pressure : */* mmHG Vent. Rate : 133 BPM Atrial Rate : 133 BPM P-R Int : 128 ms QRS Dur : 104 ms QT Int : 350 ms P-R-T Axes : * 65 -4 degrees QTcB Int : 520 ms Sinus tachycardia with Premature atrial complexes Moderate voltage criteria for LVH, may be normal variant ( Sokolow-Ureña , [place] product ) Nonspecific T wave abnormality Abnormal ECG When compared with ECG of 10-Oct-2022 15:35, Premature atrial complexes are now Present Nonspecific T wave abnormality, worse in Inferior leads T wave inversion now evident in Lateral leads Referred By: Madeleine Childs Electronically Signed By: Leonardo Mcdonnell
[2025-05-11 10:50] VITALS: BP 132/89; PULSE 104; RESP 16; TEMP 36.9; O2SAT 96
[2025-05-11] MEDS: Albuterol Sulfate 90 MCG 8 GM INHALER 4 PUFF INHALE (11:03)
[2025-05-11 11:07] VITALS: PULSE 54; RESP 16; O2SAT 96
[2025-05-11 11:11] LABS: Hematocrit 38.1 % (42.0-52.0); Hemoglobin 13.0 g/dl (14.0-18.0); Imm Gran Abs Auto 0.03 X10*3/uL (0.00-0.03); Imm Gran Pct Auto 0.4 % (0.0-0.4); Lymphocytes Absolute Auto 0.7 X10*3/uL (1.2-4.9); MANUAL DIFF FLAG NO; Mean Corpuscular HGB Conc 34.1 g/dl (31.0-36.0); Mean Corpuscular Hemoglobin 31.9 pg (27.0-33.0); Mean Corpuscular Volume 93.6 fL (80.0-98.0); NRBC Abs Auto 0.000 X10*3/uL (0.0-0.012); NRBC Pct Auto 0.0 /100WBC (0.0-0.2); Platelet Count 176 X10*3/uL (160-400); Red Blood Count 4.07 X10*6/uL (4.60-5.80); White Blood Count 6.7 X10*3/uL (4.8-10.8)
--- OUTSIDE RECORDS SUMMARY | 2025-05-11 11:25 | XMS_ITS | Clinical Summary ---
Author Organization [facility] Address [address] [place] [address] Phone Care Team Providers Care Judge'S Clerk Name Role Phone Carissa Wells Primary Care P rovider Surgical History Surgery Date Site/Laterality Comments OTHER SURGICAL HISTORY PROCEDURE: [place] ARTHRP ACETBLR/PROX FEM PROSTC AGRFT/ALGRFT Social History Tobacco Use Types Packs/Day Years Used Date Smoking Tobacco: Former Cigarettes Smokeless Tobacco: Never Alcohol Use Standard Drinks/Week Comments Yes 2 (1 standard drink = 0.6 oz pur e alcohol) Sex and Gender Information Value Date Recorded Sex Assigned at Not on file Legal Sex Male 1:08 AM EST Gender Identity Not on file Sexual Orientation Not on file Obstetrics History Plan of Treatment Health Maintenance Due Date Last Done Comments DTaP,Tdap,and Td Vaccines (1 - Tdap) 1970 Pneumococcal Vaccine: 50+ Ye ars (1 of 1 - PCV) 2001 Zoster Vaccines (1 of 2) 2001 COVID-19 Vaccine ( - 2023-2 5 season) 2024 Depression Screening 09/30/2024 Abdominal Aortic Aneurysm (A AA) Screen 12/23/2024 Cholesterol Screening (Lipid Panel) 12/23/2024 Colorectal Cancer Screening: Colonoscopy 12/23/2024 Falls Risk Assessment 12/23/2024 Hepatitis C Screening 12/23/2024 Social Influencers of Health Screening 12/23/2024 Influenza Vaccine (#1) 2025 RSV Immunization Adult Patie nts (1 - 1-dose 75+ series) 2026 HIB Vaccines Aged Out No longer eligi ble based on patient's age to complete this topic HPV Vaccines Aged Out No longer eligi ble based on patient's age to complete this topic Hepatitis A Vaccines Aged Out No long er eligible based on patient's age to complete this topic Hepatitis B Vaccines Aged Out No long er eligible based on patient's age to complete this topic IPV Vaccines Aged Out No longer eligi ble based on patient's age to complete this topic MMR Vaccines Aged Out No longer eligi ble based on patient's age to complete this topic Meningococcal ACWY Vaccine Aged Out N o longer eligible based on patient's age to complete this topic Meningococcal B Vaccine Aged Out No l onger eligible based on patient's age to complete this topic RSV Immunization Patients Un baudilio 20 months Aged Out No longer eligible b ased on patient's age to complete this topic Varicella Vaccines Aged Out No longer eligible based on patient's age to complete this topic Care Teams Judge'S Clerk Relationship Specialty Start Date End Date Carissa Wells PA PCP - General 08/28/23
[2025-05-11 11:27] LABS: Alanine Aminotransferase 25 U/L (0-40); Albumin Level 4.4 g/dL (3.5-5.0); Alkaline Phosphatase 87 U/L (39-117); Anion Gap 11 (12-20); Aspartate Amino Transferase 26 U/L (5-37); Blood Urea Nitrogen 16 mg/dL (9-16); Calcium 9.2 mg/dL (8.4-10.2); Carbon Dioxide 29 mmol/L (22-29); Chloride 100 mmol/L (96-108); Creatinine Clr Calc Pharmacy 69.8; Estimated Glomerular Filt Rate > 60; Lipase 80 U/L (8-78); Magnesium 1.8 mg/dL (1.6-2.6); Potassium 4.0 mmol/L (3.3-5.1); Sodium 136 mmol/L (135-145); Total Protein 7.3 g/dL (6.5-8.0)
[2025-05-11 11:29] LABS: Resp Syncy Virus RNA Qual PCR NEGATIVE (Negative); SARS COV2 PCR INHOUSE NEGATIVE (Negative)
[2025-05-11 11:31] LABS: Troponin-I High Sensitivity 14.4 ng/L (<3.5-35.0)
[2025-05-11 12:04] LABS: B Type Natriuretic Peptide 696 pg/mL (<100)
[2025-05-11 12:54] VITALS: BP 141/97; PULSE 125; RESP 16; TEMP 36.8; O2SAT 97
[2025-05-11 12:56] VITALS: BP 141/97; PULSE 54; RESP 16; TEMP 36.6; O2SAT 95
== END 2025-05-11 14:36 | disposition home or self-care (01) ==
PROVIDERS: Physician Assistant Medical; Emergency Provider Emergency Medicine
DX: J18.9 Pneumonia, unspecified organism (principal); R05.9 Cough, unspecified; F12.90 Cannabis use, unspecified, uncomplicated; C61 Malignant neoplasm of prostate; R63.4 Abnormal weight loss; Z68.1 Body mass index [BMI] 19.9 or less, adult; Z87.891 Personal history of nicotine dependence; Z53.29 Procedure and treatment not carried out because of patient's decision for other reasons; Z03.818 Encounter for observation for suspected exposure to other biological agents ruled out; Z86.711 Personal history of pulmonary embolism; Z79.01 Long term (current) use of anticoagulants
CPT/HCPCS: 36415; 71046; 71250; 80048; 80076; 83690; 83735; 83880; 84484; 85025; 87040; 87637; 93005; 94640; 96374; 99284; 99285; J0696

== ENCOUNTER → 2025-05-11 09:50 | Outpatient (BNV) | payer MEDICARE, MEDICAID, SELFPAY | PROVIDERS: Emergency Provider Emergency Medicine; Visit Provider Radiology Diagnostic Radiology | DX: J47.0 Bronchiectasis with acute lower respiratory infection (principal) | CPT/HCPCS: 71046; 71250 ==

== ENCOUNTER → 2025-05-11 10:48 | Outpatient (BNV) | payer MEDICARE, MEDICAID, SELFPAY | PROVIDERS: Emergency Provider Emergency Medicine; Visit Provider Internal Medicine Cardiovascular Disease | DX: R00.0 Tachycardia, unspecified (principal); I49.1 Atrial premature depolarization; I51.7 Cardiomegaly | CPT/HCPCS: 93010 ==